=== PATIENT | female | born 1985 | race Caucasian/White ===

== ENCOUNTER 2017-10-25 05:15 | Day surgery (SDC) | payer OTHER ==
[2017-10-22 09:23] LABS: BASOPHILS 0.4 % (0-2); EOSINOPHILS 2.7 % (0-7); HEMATOCRIT 44.1 % (36.0-48.0); HEMOGLOBIN 15.2 g/dL (12-16); IMMATURE GRANULOCYTES 0.2 % (0-5); LYMPHOCYTES 39.1 % (15-50); MCH 30.1 pg (26.0-34.0); MCHC 34.5 g/dL (31.0-37.0); MCV 87.3 fL (80.0-100.0); NEUTROPHILS 50.6 % (40-80); PLATELET COUNT 224 10x3/uL (130-400); RBC 5.05 10x6/uL (4.00-5.40); RDW 12.5 % (11.5-14.5); WBC 5.6 10x3/uL (4.8-10.8)
[~2017-10-25] VITALS: Ht 160 cm; Wt 62.7 kg
--- NOTE | ~2017-10-25 | OP ---
PATIENT NAME: MOHINDER MCPHERSON MEDICAL RECORD: [id number] :87 LOCATION:[facility] ADMISSION DATE: SURGEON: ODIN OWEN MD DATE OF OPERATION: 10/25/2017 PREOPERATIVE DIAGNOSIS: Secondary dysmenorrhea. POSTOPERATIVE DIAGNOSES: Secondary dysmenorrhea. Suspect adenomyosis. PROCEDURE: Total laparoscopic hysterectomy. SURGEON: Odin Owen MD MECHANICAL SPREADER OPERATOR: Mr. Winston. ANESTHESIOLOGIST: Dr. Marcano. ANESTHESIA: General anesthetic with endotracheal intubation. FINDINGS: Uterus is enlarged and boggy, otherwise unremarkable. No adhesive disease or apparent endometriosis. Ovaries unremarkable. SPECIMEN REMOVED: Uterus with cervix. SPECIMEN DISPOSITION: Pathology. ESTIMATED BLOOD LOSS: Less than or equal to 75 cc. FLUIDS: 1300 cc lactated Ringer's. URINE OUTPUT: 125 cc of clear urine. COMPLICATIONS: None. DRAINS: Sher to gravity, discontinued in same day. INDICATIONS: The patient is a 32-year-old female with no future fertility desires, who reports painful periods that have a negative impact on quality of life. The patient also has dyspareunia. The patient is consented for total laparoscopic hysterectomy and any indicated procedure. DESCRIPTION OF PROCEDURE: After informed consent was assured, the patient was taken to the operating room, anesthetic was obtained. The patient was now prepped and draped in usual sterile fashion. A uterine manipulator was inserted and then attention was directed to the abdominal wall. With the patient in lithotomy position, an incision was made at the umbilicus to accommodate a 5-mm trocar. This trocar was inserted, pneumoperitoneum was developed and the patient was placed in Trendelenburg position. Accessory ports were placed in the right and left lower quadrants. Using uterine manipulator, the uterus was elevated, deflected to the right and dissection was begun under the tube across the adnexa and broad ligament. The anterior leaf of the broad ligament was opened and the bladder flap developed. The posterior leaf was developed and the vascular bundle of the right side was dissected free, compress coagulated and . The attention was now directed to the left side where the tube was removed from its attachments to the adnexa and again the dissection was carried OPERATIVE REPORT [id number] MOHINDER MCPHERSON down over the uterine ovarian ligaments and round ligaments. The broad ligament was opened and the bladder flap fully developed. Posteriorly, the flap was carried down and the vessels on the left side skeletonized, compress coagulated and . Dissection now began from the 9 to 6 o'clock position and then continued from the 6-12 o'clock positions. The remaining portion from the 9-12 was completed. Once the uterus was free of the attachment to the vagina, it was pulled down into the vaginal vault and pneumoperitoneum was maintained. The cuff was inspected and irrigated. The legs were positioned for the vaginal close as the pneumoperitoneum was released. The uterus was removed and the cuff was closed with Vicryl stitch. After completion of the vaginal close, attention was redirected abdominally where pneumoperitoneum was reestablished and the operative field inspected and found to be hemostatic. The pelvis was irrigated, irrigant removed. The accessory trocars were removed under direct visualization and then the primary trocar removed. Subcuticular stitches applied. Dermabond was applied over the incisions. Sponge, lap and needle counts correct times 2 and the patient went to recovery area in stable condition. TRANSINT:[id number] Voice Confirmation ID: [id number] DOCUMENT ID: [id number] 11/19/2017 Edited to add procedure line per office, dmm. ODIN OWEN MD at 1237 CC: [id number] DICTATION DATE: 11/16/17 1556 [employer] SPECIALIST: 11/16/17 1625 [facility] 10/26/17 [facility] [address] [place] [address]
[~2017-10-25 05:15] MED LIST: AMBIEN10 MG PO; KEPPRA750 MG PO; PROMETRIUM100 MG PO; PROZAC40 MG PO
[2017-10-25 07:36] VITALS: BP 119/87; BMI 24.5
[2017-10-25 07:44] LABS: HCG URINE NEGATIVE (NEGATIVE)
[2017-10-25 17:30] VITALS: BP 122/78
[2017-10-25 20:25] VITALS: BP 95/51
[2017-10-26 08:30] VITALS: BP 94/61
[2017-10-26 10:09] VITALS: BP 94/61; Ht 160 cm; Wt 62.7 kg
== END 2017-10-26 09:15 | disposition home or self-care (01) ==
LOC: D.OPS 05:15 → D.PAN 08:45 → D.OPS 09:00 → D.PAN 09:05 → D.WS 16:43 → D.OPS 10-26 09:15
PROVIDERS: Obstetrics & Gynecology
DX: N93.8 Other specified abnormal uterine and vaginal bleeding (principal); N94.5 Secondary dysmenorrhea; Z01.812 Encounter for preprocedural laboratory examination